=== PATIENT | female | born 1980 | race Caucasian/White ===

== ENCOUNTER → 2018-05-28 | Outpatient (CLI) | payer OTHER ==
[~2018-05-28] MED LIST: CIPROFLOXACIN500 M1 PO; PYRIDIUM200 MG PO; VITAMIN B-1100 M1 PO; VITAMIN D1000 UNI1 PO; XANAX 0.5 MG0.5 MG PO
== END ==
LOC: M.LAB 03:33
DX: Z01.812 Encounter for preprocedural laboratory examination (principal)

== ENCOUNTER 2021-01-30 08:07 | Emergency (ER) | payer OTHER ==
[~2021-01-30] VITALS: Ht 165.1 cm; Wt 95.3 kg
[2021-01-30] MEDS ORDERED: CRESTOR10 MG PO (08:23)
[2021-01-30] MEDS ORDERED: HYDROCHLOROTHIA25 M1 PO (08:23)
[2021-01-30] MEDS ORDERED: PAXIL20 MG PO (08:23)
[2021-01-30] MEDS ORDERED: NORCO5 PO (09:29)
[2021-01-30 09:38] VITALS: BP 127/73
== END 2021-01-30 09:39 | disposition home or self-care (01) ==
LOC: M.ERS 08:07
DX: S42.254A Nondisplaced fracture of greater tuberosity of right humerus, initial encounter for closed fracture (principal); Z98.51 Tubal ligation status; Z98.890 Other specified postprocedural states; W01.0XXA Fall on same level from slipping, tripping and stumbling without subsequent striking against object, initial encounter; Y93.89 Activity, other specified; Y92.481 Parking lot as the place of occurrence of the external cause; Y99.8 Other external cause status